=== PATIENT | female | born 1960 | race Caucasian/White ===

== ENCOUNTER → 2017-02-07 09:23 | Outpatient (CLI) | payer BC ==
[2011-11-29 10:28] VITALS: BMI 51.5
== END | disposition home or self-care (01) ==
LOC: D.US 09:23
DX: M71.22 Synovial cyst of popliteal space [Baker], left knee (principal)

== ENCOUNTER → 2017-09-10 12:20 | Outpatient (CLI) | payer BC ==
[2011-11-29 10:28] VITALS: BMI 51.5
== END | disposition home or self-care (01) ==
LOC: D.MAMMO 08:00 → D.US 08:00 → D.MAMMO 12:20
DX: N64.4 Mastodynia (principal)

== ENCOUNTER 2019-02-11 09:45 | Day surgery (SDC) | payer BC ==
[~2019-02-11] VITALS: Ht 172.7 cm; Wt 163.6 kg
[2019-02-11 10:29] LABS: BASOPHILS 0.6 % (0-2); EOSINOPHILS 3.1 % (0-7); HEMATOCRIT 40.5 % (36.0-48.0); HEMOGLOBIN 13.1 g/dL (12-16); IMMATURE GRANULOCYTES 0.1 % (0-5); LYMPHOCYTES 26.2 % (15-50); MCH 28.1 pg (26.0-34.0); MCHC 32.3 g/dL (31.0-37.0); MCV 86.7 fL (80.0-100.0); MEAN PLATELET VOLUME 9.5 fL (7.4-10.4); MONOCYTES 6.1 % (2-11); NEUTROPHILS 63.9 % (40-80); PLATELET COUNT 328 10x3/uL (130-400); RBC 4.67 10x6/uL (4.00-5.40); RDW 14.4 % (11.5-14.5); WBC 7.1 10x3/uL (4.8-10.8)
[2019-02-11 10:39] LABS: ANION GAP 9.9 mmol/L (8-16); CALCIUM 9.5 mg/dL (8.5-10.1); CARBON DIOXIDE 33.1 mmol/L (21.0-32.0); CREATININE - SERUM 0.9 mg/dL (0.6-1.3)
[2019-02-11] MEDS ORDERED: ULTRAM50 MG PO (10:50)
[2019-02-11] MEDS ORDERED: PAXIL40 MG PO (10:50)
[2019-02-11] MEDS ORDERED: LISINOPRIL40 MG PO (10:50)
[2019-02-11 10:59] VITALS: BP 145/86; Ht 172.7 cm; Wt 163.6 kg
--- NOTE | 2019-02-11 14:04 | NUR ---
[address] DR[address] MAST ROUNDS
--- NOTE | 2019-02-11 16:32 | OP ---
PATIENT NAME: MICHELLE MARTINEZ MEDICAL RECORD: [id number] [facility] DATE: SURGEON: WES MAST MD DATE OF OPERATION: 02/11/2019 PROCEDURE: Colonoscopy with polypectomy. REFERRING PHYSICIAN: Ivis Mabry MD INDICATIONS: Ms. Martinez is a delightful 58-year-old woman with a history of colon polyps. Her last colonoscopy was 01/08/2015, with finding showing diverticulosis coli and 6 colon polyps (polyps were tubular adenomas). She presents for outpatient surveillance colonoscopy. Sigmoid diverticula were noted and they are numb. PREMEDICATIONS: Total IV anesthesia (BMI 55.5) propofol 480 mg. INSTRUMENT: Olympus video colonoscope, pediatric. PROCEDURE AND FINDINGS: After receiving informed consent, Ms. Martinez's posterior pharynx was anesthetized with Cetacaine spray. She was placed in left lateral decubitus position and sedated as per anesthesia. After achieving adequate level of sedation, digital rectal exam was performed that showed few external hemorrhoidal tags. No fissures or fistulas, normal sphincter tone with no palpable rectal masses. The colonoscope was introduced per rectally and advanced easily to the cecum. The cecum, IC valve, and appendiceal orifice were identified. Within the cecum was a 0.25 cm sessile polyp removed with hot biopsy forceps technique. A few diverticula were seen scattered in the ascending and transverse colon. In the descending colon were 2 polyps, one measured 0.25 cm in size and the other measured 0.3 cm in size, sessile, removed with hot biopsy forceps technique. In the rectum was a 0.3 cm sessile polyp removed with hot biopsy forceps technique. Retroflexion in rectum showed mild internal hemorrhoids. A good prep was present. There were no immediate complications. Withdrawal time was 12 minutes. ASSESSMENT: 1. Small cecal polyp status post polypectomy. 2. Two small descending colon polyp status post polypectomy. 3. Small rectal polyp, status post polypectomy. 4. Mild pandiverticulosis coli. 5. Mild internal hemorrhoids. RECOMMENDATIONS: 1. Follow up histopathology. 2. Avoid aspirin, nonsteroidal anti-inflammatory drugs and [place]-2 inhibitors for 14 days post-polypectomy. 3. High fiber diet. 4. Surveillance colonoscopy in 3 years. TRANSINT:[id number] Voice Confirmation ID: [id number] DOCUMENT ID: [id number] OPERATIVE REPORT [id number] MICHELLE MARTINEZ TERRI MD at 1632 CC: PALMIRA MABRY MD [id number] DICTATION DATE: 02/11/19 1333 [facility] ARC: 02/11/19 1611 [facility] 02/11/19 [place] [id number] [place] [id number]
== END 2019-02-11 14:25 | disposition home or self-care (01) ==
LOC: D.OPS 09:45
PROVIDERS: Anesthesiology; ATTEND Internal Medicine Gastroenterology
DX: Z12.11 Encounter for screening for malignant neoplasm of colon (principal); D12.0 Benign neoplasm of cecum; K63.5 Polyp of colon; K57.30 Diverticulosis of large intestine without perforation or abscess without bleeding; K64.8 Other hemorrhoids; K64.4 Residual hemorrhoidal skin tags; Z86.010 Personal history of colon polyps; Z01.812 Encounter for preprocedural laboratory examination

== ENCOUNTER → 2019-02-12 12:39 | Outpatient (CLI) | payer BC ==
[2019-02-11 10:59] VITALS: BMI 54.8
[~2019-02-12 12:39] MED LIST: LISINOPRIL40 MG PO; PAXIL40 MG PO; ULTRAM50 MG PO
[2019-02-12 13:27] LABS: BASOPHILS 0.5 % (0-2); EOSINOPHILS 3.3 % (0-7); HEMATOCRIT 39.5 % (36.0-48.0); HEMOGLOBIN 12.9 g/dL (12-16); IMMATURE GRANULOCYTES 0.1 % (0-5); LYMPHOCYTES 26.1 % (15-50); MCH 28.4 pg (26.0-34.0); MCHC 32.7 g/dL (31.0-37.0); MCV 86.8 fL (80.0-100.0); MEAN PLATELET VOLUME 9.4 fL (7.4-10.4); MONOCYTES 8.5 % (2-11); NEUTROPHILS 61.5 % (40-80); PLATELET COUNT 317 10x3/uL (130-400); RBC 4.55 10x6/uL (4.00-5.40); RDW 14.3 % (11.5-14.5); WBC 7.6 10x3/uL (4.8-10.8)
== END | disposition home or self-care (01) ==
LOC: D.LAB 12:39
PROVIDERS: ATTEND Internal Medicine Gastroenterology
DX: R10.9 Unspecified abdominal pain (principal); R14.0 Abdominal distension (gaseous); Z98.890 Other specified postprocedural states

== ENCOUNTER → 2019-03-21 22:36 | Outpatient (CLI) | payer BC ==
[2019-02-11 10:59] VITALS: BMI 54.8
== END | disposition home or self-care (01) ==
LOC: D.MAMMO 15:45
PROVIDERS: ATTEND Family Medicine
DX: Z12.31 Encounter for screening mammogram for malignant neoplasm of breast (principal)

== ENCOUNTER 2019-04-11 09:00 | Outpatient (CLI) | payer BC ==
[2019-02-11 10:59] VITALS: BMI 54.8
== END 2019-04-11 10:00 | disposition home or self-care (01) ==
LOC: D.MAMMO 09:00
PROVIDERS: ATTEND Family Medicine
DX: Z12.31 Encounter for screening mammogram for malignant neoplasm of breast (principal)

== ENCOUNTER → 2020-08-17 17:30 | Outpatient (CLI) | payer BC ==
[2019-02-11 10:59] VITALS: BMI 54.8
== END ==
LOC: D.MAMMO 08-16 13:15
PROVIDERS: ATTEND Family Medicine
DX: Z12.31 Encounter for screening mammogram for malignant neoplasm of breast (principal)